=== PATIENT | female | born 1985 | race Caucasian/White ===

== ENCOUNTER 2019-02-16 14:45 | Outpatient (CLI) | payer OTHER, MEDICAID ==
[2019-02-16 15:30] LABS: ADD UMIC YES; UR ASCORBIC ACID NEGATIVE (NEGATIVE); UR BACTERIA FEW /HPF (NONE SEEN); UR BILIRUBIN (Dip) NEGATIVE (NEGATIVE); UR BLOOD (Dip) NEGATIVE (NEGATIVE); UR CLARITY CLEAR (CLEAR); UR COLOR COLORLESS (YELLOW); UR GLUCOSE (Dip) NEGATIVE (NEGATIVE); UR KETONES (Dip) NEGATIVE (NEGATIVE); UR LEUKOCYTE ESTERASE (Dip) 1+ Leu/ul (NEGATIVE); UR NITRITE (Dip) NEGATIVE (NEGATIVE); UR RBC 2 /HPF (0-5); UR SPECIFIC GRAVITY (Dip) 1.003 (1.003-1.030); UR SQUAMOUS EPITHELIAL CELL FEW /HPF (FEW); UR TOTAL PROTEIN (Dip) NEGATIVE (NEGATIVE); UR UROBILINOGEN (Dip) NEGATIVE (NEGATIVE); UR WBC 3 /HPF (0-5)
[2019-02-16 16:16] LABS: RUPTURE FETAL MEMBRANES NEGATIVE (NEGATIVE)
[2019-02-16 17:21] LABS: ADD MAN DIFF? NO
[2019-02-16 17:23] LABS: WHITE BLOOD COUNT 10.4 10^3/ul (4.8-10.8)
[2019-02-16 17:23] LABS: BASOPHILS % 0.1 % (0.0-2.0); EOSINOPHILS # 0.1 10^3/ul (0.0-0.5); EOSINOPHILS % 0.8 % (0.0-7.0); HEMATOCRIT 34.9 % (37.0-47.0); HEMOGLOBIN 11.5 g/dl (12.0-16.0); LYMPHOCYTES # 2.3 10^3/ul (0.8-2.9); LYMPHOCYTES % 22.3 % (15.0-51.0); MEAN CORPUSCULAR VOLUME 87.9 fl (82.0-101.0); MEAN PLATELET VOLUME 9.4 fl (7.4-10.4); MONOCYTE # 0.7 10^3/ul (0.3-0.9); MONOCYTES % 6.8 % (0.0-11.0); NEUTROPHIL # 7.2 10^3/ul (1.6-7.5); NEUTROPHILS % 69.5 % (39.0-77.0); PLATELET COUNT 285 10^3/UL (140-415); RED BLOOD COUNT 3.97 10^6/ul (4.20-5.40); RED CELL DISTRIBUTION WIDTH 13.8 % (11.5-14.5)
== END 2019-02-16 17:41 | disposition home or self-care (01) ==
LOC: OBT 14:45 → L-D 14:47 → OBT 17:41
DX: O42.92 Full-term premature rupture of membranes, unspecified as to length of time between rupture and onset of labor (principal); Z3A.38 38 weeks gestation of pregnancy
CPT/HCPCS: 76815; 76818; 81001; 84112; 85025

== ENCOUNTER 2019-02-19 03:14 | Inpatient (IN) | payer OTHER ==
[2019-02-19] MEDS ORDERED: LACTATED RINGER'S 1,000 ML IV (03:55)
[2019-02-19] MEDS ORDERED: OXYTOCIN 30 UNITS/LR 500 ML IV ×2 (04:00→18:00)
[2019-02-19] MEDS ORDERED: IBUPROFEN 600 MG TAB PO (04:00)
[2019-02-19] MEDS ORDERED: MISOPROSTOL 200 MCG TAB PR ×2 (04:00→18:00)
[2019-02-19] MEDS ORDERED: METHYLERGONOVINE 0.2 MG INJ IM ×2 (04:00→18:00)
[2019-02-19] MEDS ORDERED: CARBOPROST 250 MCG INJ IM ×2 (04:00→18:00)
[2019-02-19] MEDS ORDERED: LIDOCAINE 1% (MPF) 30 ML INJ INJ (04:00)
[2019-02-19] MEDS ORDERED: BUTORPHANOL 2 MG INJ IV (04:00)
[2019-02-19] MEDS: MINERAL OIL LIGHT 10 ML VIAL TOP (05:00)
[2019-02-19] MEDS: LACTATED RINGER'S 1,000 ML IV ×2 (06:07→13:44)
[2019-02-19] MEDS: CLINDAMYCIN 900 MG/D5W (PMX) 50 ML IVPB ×2 (06:10→13:43)
[2019-02-19 06:22] LABS: ADD MAN DIFF? NO
[2019-02-19 06:29] LABS: WHITE BLOOD COUNT 10.9 10^3/ul (4.8-10.8)
[2019-02-19 06:29] LABS: BASOPHILS % 0.2 % (0.0-2.0); EOSINOPHILS # 0.1 10^3/ul (0.0-0.5); EOSINOPHILS % 0.6 % (0.0-7.0); HEMATOCRIT 36.8 % (37.0-47.0); HEMOGLOBIN 12.3 g/dl (12.0-16.0); LYMPHOCYTES # 2.1 10^3/ul (0.8-2.9); LYMPHOCYTES % 19.4 % (15.0-51.0); MEAN CORPUSCULAR HEMOGLOBIN 29.4 pg (29.0-33.0); MEAN CORPUSCULAR HGB CONC 33.4 g/dl (32.0-37.0); MEAN PLATELET VOLUME 9.7 fl (7.4-10.4); MONOCYTE # 0.6 10^3/ul (0.3-0.9); MONOCYTES % 5.4 % (0.0-11.0); NEUTROPHIL # 8.1 10^3/ul (1.6-7.5); NEUTROPHILS % 73.9 % (39.0-77.0); PLATELET COUNT 318 10^3/UL (140-415); RED BLOOD COUNT 4.18 10^6/ul (4.20-5.40); RED CELL DISTRIBUTION WIDTH 13.9 % (11.5-14.5)
[2019-02-19 06:49] LABS: INR 0.81; PROTIME 11.3 Sec (11.9-14.9); PT RATIO 0.9
[2019-02-19 06:50] LABS: PARTIAL THROMBOPLASTIN TIME 28.5 Sec (23.0-35.0)
[2019-02-19] MEDS: OXYTOCIN 30 UNITS/LR 500 ML IV ×3 (07:17→16:39)
[2019-02-19] MEDS: BUTORPHANOL 2 MG INJ IV ×2 (12:12→15:04)
[2019-02-19 15:20] LABS: RAPID PLASMA REAGIN NONREACTIVE (NR)
[2019-02-19] MEDS: LACTATED RINGER'S 1,000 ML IV* ×2 (17:31→21:17)
[2019-02-19] MEDS: WITCH HAZEL/GLYCERIN PAD PR (17:54)
[2019-02-19] MEDS: BENZOCAINE 20% 56 ML SPRAY TOP (17:54)
[2019-02-19] MEDS: IBUPROFEN 600 MG TAB PO ×2 (17:55→23:38)
[2019-02-19] MEDS ORDERED: ACETAMINOPHEN 325 MG TAB PO (18:00)
[2019-02-19] MEDS ORDERED: HYDROCODONE/APAP (5/325) TAB PO (18:00)
[2019-02-19] MEDS ORDERED: DIBUCAINE 1% 30 GM OINT TOP (18:00)
[2019-02-19] MEDS: SENNA/DOCUSATE NA (8.6MG/50MG) TAB PO (21:13)
[2019-02-20] MEDS: IBUPROFEN 600 MG TAB PO ×4 (05:42→23:43)
[2019-02-20 08:17] LABS: ADD MAN DIFF? NO
[2019-02-20 08:24] LABS: WHITE BLOOD COUNT 13.6 10^3/ul (4.8-10.8)
[2019-02-20 08:24] LABS: BASOPHILS % 0.2 % (0.0-2.0); EOSINOPHILS % 0.3 % (0.0-7.0); HEMATOCRIT 30.4 % (37.0-47.0); HEMOGLOBIN 9.9 g/dl (12.0-16.0); LYMPHOCYTES # 2.4 10^3/ul (0.8-2.9); LYMPHOCYTES % 17.9 % (15.0-51.0); MEAN CORPUSCULAR HEMOGLOBIN 29.4 pg (29.0-33.0); MEAN CORPUSCULAR HGB CONC 32.6 g/dl (32.0-37.0); MEAN CORPUSCULAR VOLUME 90.2 fl (82.0-101.0); MEAN PLATELET VOLUME 9.6 fl (7.4-10.4); MONOCYTE # 0.7 10^3/ul (0.3-0.9); MONOCYTES % 5.4 % (0.0-11.0); NEUTROPHIL # 10.3 10^3/ul (1.6-7.5); NEUTROPHILS % 75.8 % (39.0-77.0); PLATELET COUNT 259 10^3/UL (140-415); RED BLOOD COUNT 3.37 10^6/ul (4.20-5.40); RED CELL DISTRIBUTION WIDTH 13.7 % (11.5-14.5)
[2019-02-20] MEDS: SENNA/DOCUSATE NA (8.6MG/50MG) TAB PO ×2 (09:41→21:53)
[2019-02-21] MEDS: IBUPROFEN 600 MG TAB PO ×2 (05:53→12:19)
[2019-02-21] MEDS ORDERED: DIPHTH/TET/ACEL PERTUSS (ADULT) 0.5 ML VIAL IM* (09:00)
[2019-02-21] MEDS: SENNA/DOCUSATE NA (8.6MG/50MG) TAB PO (09:22)
== END 2019-02-21 16:58 | disposition home or self-care (01) | DRG 807 ==
LOC: OBT 03:14 → L-D 03:15 → OBT 03:54 → L-D 03:54 → PP1 17:48
PROVIDERS: Obstetrics & Gynecology
PROC: 10E0XZZ Delivery of Products of Conception, External Approach (ICD-10-PCS; principal; 2019-02-19)
PROC: 0KQM0ZZ Repair Perineum Muscle, Open Approach (ICD-10-PCS; 2019-02-19)
DX: O69.81X0 Labor and delivery complicated by cord around neck, without compression, not applicable or unspecified (principal); Z37.0 Single live birth; O70.1 Second degree perineal laceration during delivery; Z3A.38 38 weeks gestation of pregnancy
CPT/HCPCS: 76818; 85025; 85610; 85730; 86592; 86850; 86900; 86901